=== PATIENT | female | born 1980 | race Caucasian/White ===

== ENCOUNTER → 2017-09-12 | Outpatient (CLI) | payer OTHER, SELFPAY ==
[~2017-09-12] MED LIST: METHACHOLINE KIT (J7674) INH
== END ==
LOC: M CARPUL 10:44
DX: R06.02 Shortness of breath (principal)
CPT/HCPCS: J7674

== ENCOUNTER → 2019-01-02 | Outpatient (CLI) | payer OTHER | LOC: M OUTALCOH 07:59 | PROVIDERS: ATTEND Psychiatry & Neurology Psychiatry | DX: Z03.89 Encounter for observation for other suspected diseases and conditions ruled out (principal) ==

== ENCOUNTER 2019-01-15 11:01 | Outpatient (RCR) | payer OTHER | END 2019-01-26 | LOC: M OUTALCOH 11:01 | PROVIDERS: ATTEND Psychiatry & Neurology Psychiatry | DX: Z03.89 Encounter for observation for other suspected diseases and conditions ruled out (principal) ==

== ENCOUNTER → 2019-05-06 | Outpatient (CLI) | payer OTHER ==
--- NOTE | 2019-05-06 17:06 | REP ---
Seven views cervical spine: 05/06/2019. Indication: Neck pain. Comparison: None. Findings: There is no acute fracture, subluxation or dislocation. There is no instability on the flexion/extension views. Multilevel spondylosis is present most pronounced at C6/C7. Uncovertebral spurring does narrow the neural foramina at this level. Impression: No acute osseous injury or instability of the cervical spine. Electronically Signed by Cody Nascimento DO 05/06/2019 04:57 P
== END ==
LOC: M LRY 16:19
PROVIDERS: ATTEND Nurse Practitioner Family
DX: M54.2 Cervicalgia (principal)
CPT/HCPCS: 72052; 90471; 90682; G0463

== ENCOUNTER → 2019-05-19 | Outpatient (CLI) | payer OTHER ==
[2019-05-19 14:26] LABS: INFLUENZA A AMPLIFICATION NEGATIVE (NEGATIVE); INFLUENZA B AMPLIFICATION NEGATIVE (NEGATIVE)
--- NOTE | 2019-05-20 07:54 | REP ---
REASON FOR EXAM: Cough and fever. PRIORS: None. Patch opacities are seen in the right lung. These affect the right upper and lower lobes as well as the right middle lobe. A portion of the right heart border is silhouetted out. The left lung is clear. The pleural angles are sharp. The heart is not enlarged. The osseous structures are within normal limits. IMPRESSION: Right upper, middle, and lower lobe pneumonia. Electronically Signed by Lopez Forman DO 05/24/2019 04:13 P
== END ==
LOC: M RAD 12:30
PROVIDERS: ATTEND Physician Assistant
DX: J18.0 Bronchopneumonia, unspecified organism (principal)

== ENCOUNTER → 2019-06-26 | Outpatient (REF) | payer OTHER ==
[2019-06-26 12:26] LABS: PLATELET COUNT, AUTOMATED 307 10^3/uL (150-450)
[2019-06-26 12:27] LABS: HCG, SERUM QUALITATIVE NEGATIVE (NEGATIVE)
[2019-06-26 12:48] LABS: INR 1.14; PROTHROMBIN TIME 14.3 SECONDS (11.8-14.0)
[2019-06-26 12:49] LABS: PARTIAL THROMBOPLASTIN TIME 27.5 SECONDS (25.0-38.4)
== END ==
LOC: M LABDRAW1 11:51
PROVIDERS: ATTEND Physician Assistant
DX: M47.22 Other spondylosis with radiculopathy, cervical region (principal); Z01.812 Encounter for preprocedural laboratory examination

== ENCOUNTER → 2019-07-22 | Outpatient (CLI) | payer OTHER ==
[2019-07-22 16:50] LABS: BASO % 0.6 % (0.0-1.0); EOS # 0.1 10^3/uL (0.0-0.5); EOS % 1.2 % (0.0-3.0); LYMPH # 1.7 10^3/uL (1.5-5.0); LYMPH % 33.5 % (24.0-44.0); MONO # 0.3 10^3/uL (0.0-0.8); NEUTROPHILS % 58.3 % (36.0-66.0); WHITE BLOOD COUNT 5.2 10^3/uL (4.0-10.0)
[2019-07-22 17:51] LABS: ERYTHROCYTE SEDIMENTATION RATE 4 mm/hr (0-20)
== END ==
LOC: M LAB 16:06
PROVIDERS: ATTEND Physical Medicine & Rehabilitation
DX: Z01.818 Encounter for other preprocedural examination (principal)

== ENCOUNTER → 2021-09-27 | Outpatient (CLI) | payer OTHER | LOC: M WHC 11:17 | PROVIDERS: ATTEND Specialist | DX: N92.0 Excessive and frequent menstruation with regular cycle (principal) ==

== ENCOUNTER → 2022-09-23 | Outpatient (CLI) | payer OTHER | LOC: M SOG 08:03 | PROVIDERS: ATTEND Orthopaedic Surgery | DX: M25.562 Pain in left knee (principal) ==

== ENCOUNTER → 2024-02-14 | Outpatient (REF) | payer OTHER | LOC: M LAB REF 15:17 | PROVIDERS: ATTEND Nurse Practitioner Family | DX: R19.7 Diarrhea, unspecified (principal) ==

== ENCOUNTER 2024-07-22 10:14 | Day surgery (SDC) | payer OTHER ==
[~2024-07-22] VITALS: Ht 170.2 cm; Wt 103.6 kg
[~2024-07-22 10:14] MED LIST changes: -METHACHOLINE KIT (J7674) INH; +SPIR100T3 PO
[2024-07-22] MEDS ORDERED: propofoL 200 MG/20 ML VIAL As Ordered ONE (11:04)
[2024-07-22] MEDS ORDERED: LIDOCAINE 2% 100MG/5ML SDV (FOR ANES.) As Ordered ONE (11:04)
[2024-07-22 11:32] VITALS: TEMP 97.4
[2024-07-22 12:00] VITALS: BP 133/78; O2SAT 99
[2024-07-25] MEDS ORDERED: NS 250 ML IV ONE (06:00)
== END 2024-07-22 12:05 | disposition home or self-care (01) ==
LOC: M OPP 10:14
PROVIDERS: ATTEND Internal Medicine Gastroenterology
DX: D12.0 Benign neoplasm of cecum (principal); D12.5 Benign neoplasm of sigmoid colon; K57.30 Diverticulosis of large intestine without perforation or abscess without bleeding; K64.8 Other hemorrhoids; R19.4 Change in bowel habit

== ENCOUNTER 2024-10-07 12:34 | Day surgery (SDC) | payer OTHER ==
[~2024-10-07] VITALS: Ht 170.2 cm; Wt 100.5 kg
[~2024-10-07 12:34] MED LIST changes: +DICY-61 PO; +SPIR50TA4 PO
[2024-10-07] MEDS ORDERED: propofoL 200 MG/20 ML VIAL As Ordered ONE (14:28)
[2024-10-07] MEDS ORDERED: fentaNYL 100 MCG/2 ML INJECTION As Ordered ONE (14:28)
[2024-10-07] MEDS ORDERED: LIDOCAINE 2% 100MG/5ML SDV (FOR ANES.) As Ordered ONE (14:28)
[2024-10-07 14:44] VITALS: TEMP 97.7
[2024-10-07 15:00] VITALS: BP 122/80; O2SAT 97
== END 2024-10-07 15:23 | disposition home or self-care (01) ==
LOC: M OPP 12:34
PROVIDERS: ATTEND Internal Medicine Gastroenterology
DX: R11.2 Nausea with vomiting, unspecified (principal); K58.9 Irritable bowel syndrome, unspecified
CPT/HCPCS: 43239; 88305; J3010

== ENCOUNTER → 2025-05-07 | Outpatient (CLI) | payer OTHER | LOC: M PLAIMG 13:05 | PROVIDERS: ATTEND Physician Assistant | DX: R91.8 Other nonspecific abnormal finding of lung field (principal) ==